=== PATIENT | male | born 1990 | race Hispanic/Latino ===

== ENCOUNTER 2023-05-16 05:55 | Emergency (ER) | payer OTHER ==
[~2023-05-16] VITALS: Ht 170.2 cm; Wt 111.1 kg
[2023-05-16 06:48] LABS: BASOPHILS % (AUTO) 0.4 % (0.0-5.0); EOSINOPHILS % (AUTO) 2.8 % (0.0-8.0); HEMATOCRIT 44.1 % (42-54); LYMPHOCYTES % (AUTO) 31.4 % (21.0-51.0); MEAN CORPUSCULAR HEMOGLOBIN 27.9 pg (27.0-33.0); MEAN CORPUSCULAR HGB CONC 32.9 g/dL (32.0-36.0); MEAN CORPUSCULAR VOLUME 84.8 fL (79-99); MONOCYTES % (AUTO) 6.4 % (3.0-13.0); NEUTROPHILS % (AUTO) 58.5 % (40.0-77.0); PLATELET COUNT (AUTO) 248 K/uL (130-400); RED CELL DISTRIBUTION WIDTH 12.5 % (11.0-15.5)
[2023-05-16 06:51] LABS: APPEARANCE,URINE CLEAR (CLEAR); BILIRUBIN,URINE NEGATIVE (NEGATIVE); COLOR,URINE YELLOW (YELLOW); GLUCOSE, URINE (UA) NEGATIVE (NEGATIVE); KETONES,URINE NEGATIVE (NEGATIVE); LEUKOCYTE ESTERASE ,URINE NEGATIVE Leu/uL (NEGATIVE); NITRATE,URINE NEGATIVE (NEGATIVE); OCCULT BLOOD,URINE NEGATIVE (NEGATIVE); PROTEIN,URINE 20 mg/dL (NEGATIVE); UROBILINOGEN,URINE 0.2 mg/dL (0.2-1.0)
[2023-05-16 06:58] LABS: POTASSIUM 4.2 mmol/L (3.5-5.1); TOTAL PROTEIN, SERUM 7.3 g/dL (6.0-8.3)
[2023-05-16 07:09] LABS: MUCUS,URINE RARE LPF (None Seen); RBC,URINE 0-1 /HPF (0-1); SQUAMOUS EPITHELIAL CELL,UR RARE /HPF (0-2); WBC,URINE 0-1 /HPF (0-1)
[2023-05-16] MEDS ORDERED: HYOS-28 PO (09:08)
[2023-05-16 10:00] VITALS: BP 139/62
== END 2023-05-16 10:11 | disposition home or self-care (01) ==
LOC: EDH 05:55
DX: R10.11 Right upper quadrant pain (principal); Z20.822 Contact with and (suspected) exposure to COVID-19
CPT/HCPCS: 99284; 87635; 80053; 83690; 85025; 87804 ×2; 81001; 36415; 74018; C9803

== ENCOUNTER 2025-08-27 20:29 | Emergency (ER) | payer SELFPAY ==
[~2025-08-27] VITALS: Ht 170.2 cm; Wt 87.1 kg
[~2025-08-27 20:29] MED LIST: HYOS-28 PO
--- NOTE | 2025-08-27 20:56 | ERN ---
ED Note History of Present Illness Stated Complaint: C/O RUQ PAIN WITH N X V Chief Complaint: Abdominal Pain Time Seen by MD: 20:45 Time Seen by Midlevel: 21:15 Dictation: Mr. Alvarenga is a 34-year-old male with history of nicotine dependence who pres ented to the emergency department this evening for evaluation of abdominal pain. He reports 24 hours of right upper quadrant abdominal pain accompanied by nausea, diarrhea, and chills. He also has noted urinary frequency. He states he has had similar symptoms in the past, was evaluated, and was prescribed some gas pills. He denies fever, shortness of breath, cough, chest pain, palpitations, edema, vomiting, hematemesis, constipation, melena, hematochezia, dysuria, headache, dizziness, or focal weakness/paresthesia Allergies: Coded Allergies: No Known Allergies (Unverified Allergy, Unknown, 05/16/23) Home Meds Active Scripts Hyoscyamine Sulfate (Levsin) 0.125 Mg Tab, 0.125 MG PO QID for abdominal pain, #30 TAB Prov:NOA ARMSTRONG MD 05/16/23 Past Medical History Past Medical History: No Pertinent History Surgical History: None PSYCH History: no pertinent psych hx Family History: DM Social History: Smokers (2-3 cigarettes/daily) RN Note Reviewed/Agreed w/PFSH: Yes Review of System Dictation REVIEW OF SYSTEMS: CONSTITUTIONAL: Patient denies fevers, sweats and weight changes. Reports fatigue and chills EYES: Patient denies any visual symptoms. EARS, NOSE, AND THROAT: No difficulties with hearing. No symptoms of rhinitis or sore throat. CARDIOVASCULAR: Patient denies chest pains, palpitations, orthopnea and paroxysmal nocturnal dyspnea. RESPIRATORY: No dyspnea on exertion, no wheezing or cough. GI: No vomiting, constipation, hematochezia or melena. Reports right upper quadrant abdominal pain accompanied by nausea and diarrhea. : No urinary hesitancy or dribbling. No nocturia. No flank pain.. No abnormal urethral discharge. Reports frequent urination. MUSCULOSKELETAL: No myalgias or arthralgias. NEUROLOGIC: No chronic headaches, no seizures. Patient denies numbness, tingling or weakness. PSYCHIATRIC: Patient denies problems with mood disturbance. No problems with anxiety. ENDOCRINE: No excessive urination or excessive thirst. DERMATOLOGIC: Patient denies any rashes or skin changes. Initial Vital Sign VS Vital Signs Date Time Temp Pulse Resp B/P (MAP) Pulse Ox O2 Delivery O2 Flow Rate FiO2 08/27/25 20:31 98.4 98 20 112/73 98 Room Air 08/27/25 23:47 0 21 Physical Exam Dictation Vital signs: Reviewed. Afebrile Constitutional: No acute distress. Non-toxic appearing. Head/Face: Normocephalic, atraumatic. Eyes: Periorbital areas with no swelling, redness, or edema. Lids and lashes are normal. Conjunctival injection is absent. Sclera anicteric. Pupils equal, round, reactive to light. ENT: Pinnas intact and no signs of trauma or erythema. Ear canals clear and no discharge. TMs no erythema. No nasal discharge or bleeding noted. Oropharynx wit h no exudate, redness, swelling, masses, exudates, or evidence of obstruction. Uvula midline. Mucous membranes moist. Neck: Trachea midline, no masses palpated, and no cervical lymphadenopathy. No swelling. Supple, full range of motion. Chest/Axilla: No tenderness, no crepitus, no paradoxical movement, no retractions. Cardiovascular: Regular rate, regular rhythm, no murmur, no gallops. Symmetric pulses. No peripheral edema. Respiratory: Respirations even and unlabored. Lung sounds clear; no wheezes, ra les or rhonchi. Room air SpO2 98% Gastrointestinal: Inspection is normal. No distention is appreciated. Bowel sounds are normal. No mass or organomegaly + tenderness RUQ No rebound. No rigidity. No voluntary or involuntary guarding. No Rao's sign. : Negative CVA tenderness bilaterally Neurological: Normal speech, gross motor function intact, gross sensory function intact. No focal weakness/Paresthesia. Musculoskeletal/Extremities: All extremities have full range of motion, no pain or tenderness on palpation. Symmetric pulses. Integumentary: Intact. Skin is normal color, warm and dry. Cap refill less than 2 seconds. Results (Laboratory/Radiology) Laboratory/Radiology Laboratory Tests Test 08/27/25 21:25 08/27/25 23:53 08/27/25 23:56 White Blood Count 13.3 K/uL (4.8-10.8) H Red Blood Count 5.67 MIL/uL (4.50-6.20) Hemoglobin 16.1 g/dL (14.0-18.0) Hematocrit 48.7 % (42-54) Mean Corpuscular Volume 85.9 fL (79-99) Mean Corpuscular Hemoglobin 28.4 pg (27.0-33.0) Mean Corpuscular Hemoglobin Concent 33.1 g/dL (32.0-36.0) Red Cell Distribution Width 12.6 % (11.0-15.5) Platelet Count 283 K/uL (130-400) Mean Platelet Volume 9.7 fL (7.5-10.5) Immature Granulocyte % (Auto) 0.7 % (0-1) Neutrophils (%) (Auto) 78.4 % (40.0-77.0) H Lymphocytes (%) (Auto) 14.2 % (21.0-51.0) L Monocytes (%) (Auto) 4.6 % (3.0-13.0) Eosinophils (%) (Auto) 1.7 % (0.0-8.0) Basophils (%) (Auto) 0.4 % (0.0-5.0) Neutrophils # (Auto) 10.4 K/uL (1.8-7.7) H Lymphocytes # (Auto) 1.9 K/uL (1.0-4.8) Monocytes # (Auto) 0.6 K/uL (0.1-1.0) Eosinophils # (Auto) 0.22 K/uL (0.00-0.70) Basophils # (Auto) 0.05 K/uL (0.00-0.20) Absolute Immature Granulocyte (auto 0.09 K/uL (0-1) Nucleated Red Blood Cells 0.0 % (0.0-0.19) Sodium Level 139 mmol/L (136-145) Potassium Level 3.8 mmol/L (3.5-5.1) Chloride Level 101 mmol/L (101-111) Carbon Dioxide Level 27 mmol/L (21-32) Blood Urea Nitrogen 10 mg/dL (7-18) Creatinine 0.8 mg/dL (0.5-1.3) Glomerular Filtration Rate Calc 118 mL/min (>90) Random Glucose 103 mg/dL (70-105) Total Calcium 9.1 mg/dL (8.5-10.1) Total Bilirubin 0.8 mg/dL (0.2-1.0) Direct Bilirubin 0.2 mg/dL (0.0-0.3) Aspartate Amino Transf (AST/SGOT) 22 U/L (10-37) Alanine Aminotransferase (ALT/SGPT) 50 U/L (12-78) Alkaline Phosphatase 124 U/L (50-136) Total Protein 8.0 g/dL (6.0-8.3) Albumin 4.4 g/dL (3.5-5.0) Amylase Level 46 U/L (25-115) Influenza Type A Antigen Negative For Type A Influenza Type B Antigen Negative For Type B Urine Color LIGHT-YELLOW (YELLOW) Urine Appearance CLEAR (CLEAR) Urine pH 6.0 (5.0-8.0) Urine Specific [place] 1.014 (1.001-1.031) Urine Protein NEGATIVE mg/dL (NEGATIVE) Urine Glucose (UA) NEGATIVE mg/dL (NEGATIVE) Urine Ketones NEGATIVE mg/dL (NEGATIVE) Urine Occult Blood NEGATIVE (NEGATIVE) Urine Nitrate NEGATIVE (NEGATIVE) Urine Bilirubin NEGATIVE mg/dL (NEGATIVE) Urine Urobilinogen 0.2 mg/dL (0.2-1.0) Urine Leukocyte Esterase NEGATIVE Audra/uL Labs Reviewed?: Yes Ultrasound Comment: Right upper quadrant ultrasound preliminary report noted gallstones in distended gallbladder. CBD 3 mm. ED Course ED Course Orders Procedure Category Date Status Time Urinalysis Profile LAB 08/27/25 Complete 21:09 Cbc With Differential LAB 08/27/25 Complete 21:09 Basic Metabolic Panel LAB 08/27/25 Complete 21:09 Hepatic Function Panel LAB 08/27/25 Complete 21:09 Amylase LAB 08/27/25 Complete 21:09 Ondansetron Odt 4mg PHA 08/27/25 Complete Tab (Zofran 4mg Odt) 21:30 Influenza Type A & B, LAB 08/27/25 Complete Rapid 21:09 Us Abdominal Ruq\Ltd US 08/28/25 Taken 00:55 Mag/Alum/Simeth 30ml PHA 08/28/25 Complete (Maalox Plus 30ml) 01:00 Dicyclomine Hcl PHA 08/28/25 Complete (Bentyl 10mg/5ml 01:00 Lidocaine Hcl 2% PHA 08/28/25 Complete Viscous (Lidocaine Hcl 01:00 Current Medications Medications (Trade) Dose Ordered Sig/Ute Route PRN Reason Start Time Stop Time Status Last Admin Dose Admin Al Hydroxide/Mg Hydroxide (MAALox PLUS 30ML) 30 ml ONCE ONCE PO 08/28/25 01:00 08/28/25 01:01 DC 08/28/25 01:06 Dicyclomine HCl (Bentyl 10mg/5ml Syrup) 10 mg ONCE ONCE PO 08/28/25 01:00 08/28/25 01:01 DC 08/28/25 01:06 Lidocaine HCl (Lidocaine HCl 2% Viscous) 15 ml ONCE ONCE PO 08/28/25 01:00 08/28/25 01:01 DC 08/28/25 01:06 Ondansetron HCl (zoFRAN 4MG ODT) 4 mg ONCE ONCE SL 08/27/25 21:30 08/27/25 21:31 DC 08/27/25 23:35 Vital Signs Date Time Temp Pulse Resp B/P (MAP) Pulse Ox O2 Delivery O2 Flow Rate FiO2 08/27/25 23:47 98.4 61 17 119/79 99 Room Air* 0 21 08/27/25 20:31 98.4 98 20 112/73 98 Room Air Vital signs remained stable; afebrile and normotensive room air SpO2 98-99%. Laboratory findings as noted below. There is no elevation of WBCs. H&H are stable. Glucose 113 and Ca 8.3. There is no elevation of lipase. UA is clear. Influenza a/B are negative. Right upper quadrant ultrasound revealed distended gallbladder with gallstones. CBD 3 mm While in the ED he received doses Zofran and GI cocktail. Symptoms are much improved. Findings were discussed with patient he can follow up with his primary care provider for referral to general surgeon to discuss possible cholecystectomy if symptoms continue or worsen. Medical Decision Making MDM MDM: Differential diagnosis: Cholecystitis, gastritis, diverticulitis Rationale: Tests considered and ordered secondary to shared decision making include: Lab, ultrasound Previous outside records reviewed: Old ER visits. Risk of complication and/or morbidity or mortality of patient management: None Medications-Per medication reconciliation Need for hospitalization: Patient does not meet criteria for hospitalization. Need for emergency major/minor surgery: No There are no social concerns with this patient. Prescription drug management: Ondansetron Prescriptions will include symptomatic care Patient's prior external medical records from other ER visits were reviewed by me as indicated. Prior testing and results from previous visits were reviewed. Prior tests were taken into account with medical decision making and resource utilization, independent historian/historians were used to obtain complete medical history. I independently interpreted the test that were performed, results were reviewed by me and considered findings on radiology if ordered. Medical management and examination interpretation discussions were had by me with other qualified healthcare professionals as indicated for the patient's care. DX & DISP Disposition: Discharge Departure Impression: Primary Impression: Gallstones Condition: Stable Scripts Ondansetron (Ondansetron Odt) 4 Mg Tab.rapdis 4 MG PO Q6HPRN PRN for nausea, #15 TAB 0 Refills Prov: MEE LLANES 08/28/25 Additional Instructions: Your ultrasound showed gallstones and a slightly enlarged gallbladder but no blockage or infection. Your pain is likely from gallstones which can cause episodes of abdominal discomfort, nausea, or bloating after meals-especially high fat meals. Most attacks resolve with rest and diet changes, but sometimes surgery is needed if they keep recurring or cause infection.Lab work and urine were unremarkable and your vital signs were stable. You felt better after receiving stomach medicine (GI cocktail) Zofran for nausea. You should follow a low-fat diet-avoid fried foods, fatty meats, butter, cheese, and creamy sauces. He had small, light meals and avoid overeating. Dehydrated with water or clear fluids. You may take Zofran4 mg every8 hours as needed for nausea. For pain you may use Tylenol or ibuprofen as needed. Avoid alcohol and smoking as they can worsen stomach irritation. See your primary care provider within 3-5 days for follow up and referral to general surgeon to discuss possible gallbladder removal (cholecystectomy) if symptoms continue or worsened. Keep a log of what foods or activities trigger your pain as this can help your doctor. Return to the emergency department immediately if you develop: Fever or chills, worsening right-sided or upper abdominal pain that does not go away. Persistent vomiting or inability to keep fluids down. Yellowing of your skin or eyes (jaundice). Dark urine or pale stools. Severe pain radiating to her back or your right shoulder. Referrals: SELF,REFERRAL (PCP) Time of Disposition: 01:48 MEE LLANES Aug 27, 2025 20:56
[2025-08-27 21:46] LABS: IMMATURE GRANULOCYTE ABSOLUTE 0.09 K/uL (0-1); NUCLEATED RED BLOOD CELLS 0.0 % (0.0-0.19); PLATELET COUNT (AUTO) 283 K/uL (130-400); RED BLOOD CELL COUNT(AUTO) 5.67 MIL/uL (4.50-6.20); RED CELL DISTRIBUTION WIDTH 12.6 % (11.0-15.5); WHITE BLOOD COUNT (AUTO) 13.3 K/uL (4.8-10.8)
[2025-08-27 22:01] LABS: ASPARTATE AMINOTRANSFERASE 22.0 U/L (10-37); CREATININE 0.8 mg/dL (0.5-1.3); GLOMERULAR FILTR. RATE CALC 118.0 mL/min (>90); GLUCOSE,RANDOM 103.0 mg/dL (70-105); SODIUM SERUM 139.0 mmol/L (136-145); TOTAL PROTEIN, SERUM 8.0 g/dL (6.0-8.3); UREA NITROGEN, BLOOD 10.0 mg/dL (7-18)
[2025-08-28 00:21] LABS: APPEARANCE,URINE CLEAR (CLEAR); GLUCOSE, URINE (UA) NEGATIVE (NEGATIVE); LEUKOCYTE ESTERASE ,URINE NEGATIVE Leu/uL (NEGATIVE); NITRATE,URINE NEGATIVE (NEGATIVE); OCCULT BLOOD,URINE NEGATIVE (NEGATIVE)
[2025-08-28 00:26] LABS: ADD UA MICROSCOPIC NO
[2025-08-28 00:46] LABS: INFLUENZA TYPE A Negative For Type A (NEGATIVE); INFLUENZA TYPE B Negative For Type B (NEGATIVE)
[2025-08-28] MEDS: LIDOCAINE HCL 2% VISCOUS 15 ML UDCUP PO ONE (01:06)
[2025-08-28] MEDS: MAG/ALUM/SIMETH 30 ML UDCUP PO ONE (01:06)
[2025-08-28] MEDS: DICYCLOMINE HCL 10 MG/5 ML ML PO ONE (01:06)
[2025-08-28 01:45] VITALS: BP 121/72; PULSE 68; RESP 19; TEMP 98.3; O2SAT 99
[2025-08-28] MEDS ORDERED: ONDA-243 PO (01:45)
--- NOTE | 2025-08-28 02:18 | HMCIMG ---
EXAM: US Abdomen, Right Upper Quadrant. CLINICAL HISTORY: Right upper quadrant pain. TECHNIQUE: Right upper quadrant sonography performed with image documentation. COMPARISON: None provided. FINDINGS: LIVER: 14.6 cm. Within normal limits in size and echogenicity. No mass. GALLBLADDER: Wall thickness measures 2 mm. Hydropic gallbladder measures up to 10 cm in length. Multiple gallstones. COMMON BILE DUCT: Within normal limits in size. 3 mm. PANCREAS: The pancreas is obscured by bowel gas. RIGHT KIDNEY: 11.1 x 5.3 x 5 cm. Unremarkable. Normal renal contours. No renal mass or calculus. No hydronephrosis. IMPRESSION: Cholelithiasis with hydropic gallbladder, concerning acute cholecystitis. Recommend a HIDA scan for further evaluation. /Cee
== END 2025-08-28 02:01 | disposition home or self-care (01) ==
LOC: EDH 20:29
DX: K80.00 Calculus of gallbladder with acute cholecystitis without obstruction (principal); F17.210 Nicotine dependence, cigarettes, uncomplicated; R35.0 Frequency of micturition; Z79.899 Other long term (current) drug therapy
CPT/HCPCS: 36415; 76705; 80048; 80076; 81003; 82150; 85025; 87804; 99284